=== PATIENT | male | born 1935 ===

== ENCOUNTER 2020-05-16 14:05 | Emergency (ER) | payer OTHER ==
[~2020-05-16] VITALS: Ht 177.8 cm; Wt 81.6 kg
[2020-05-16] MEDS ORDERED: HUMULIN 70100 UNIT/2 (14:31)
[2020-05-16] MEDS ORDERED: TENORMIN25 MG (14:32)
[2020-05-16] MEDS ORDERED: AZITHROMYCIN250 MG PO (18:32)
[2020-05-16] MEDS ORDERED: MUCINEX DM ER1 EAC1 PO (18:32)
[2020-05-16] MEDS ORDERED: FLUTICASONE-SA1 EAC5 IH (18:32)
== END 2020-05-16 18:51 | disposition home or self-care (01) ==
LOC: ER 14:05
DX: J20.9 Acute bronchitis, unspecified (principal); J06.9 Acute upper respiratory infection, unspecified; Z03.818 Encounter for observation for suspected exposure to other biological agents ruled out